=== PATIENT | female | born 1950 | race Caucasian/White ===

== ENCOUNTER 2017-07-04 11:05 | Day surgery (SDC) | payer MEDICARE, MEDICAID ==
--- NOTE | 2017-07-04 06:33 | History and Physical Report ---
DATE: 07/04/2017. CHIEF COMPLAINT AND HISTORY OF CHIEF COMPLAINT: This patient presents with a history of an intractable postlaminectomy radiculitis. This is currently being managed by an indwelling spinal cord stimulator with generator. Over the last number of months, it was noted that she was having generator or functional changes. Evaluation by computer of her generator identified battery depletion. She is here for battery replacement for the spinal cord stimulator. PAST MEDICAL HISTORY: Cardiomyopathy, sleep apnea, bladder dysfunction. PAST SURGICAL HISTORY: Pump implant, spinal cord stimulator implant. MEDICATIONS ON ADMISSION: To be provided. ALLERGIES: To be provided. SOCIAL HISTORY: Noncontributory. FAMILY HISTORY: Diabetes, coronary artery disease, cancer. REVIEW OF SYSTEMS: The patient seems appropriate and in no acute distress. The remainder of the systems review shows degenerative arthritis. PHYSICAL EXAMINATION FROM THE CHART: General: Height is 5 feet, 6 inches. Weight is 200 pounds. Vital Signs: Not available. HEENT: Within normal limits. Lungs: Clear. Abdomen: Nontender. Heart: Regular rate and rhythm. Musculoskeletal: Examination of the musculoskeletal system shows the pump in the right lower abdominal quadrant. The internal pulse generator for the stimulator is in the left lower abdominal quadrant. Both incisions appear to be intact. There is no breakdown of the incision. Sensory meyer are intact. Neurologic: Intact. IMPRESSION: 1. POSTLUMBAR LAMINECTOMY SYNDROME, ICD-10 CODE M96.1. 2. SPINAL CORD STIMULATOR INTERNAL GENERATOR NONFUNCTIONAL. PLAN: The patient is here for removal and replacement of the spinal cord stimulator generator on an outpatient basis. The potential risks, side effects , and complications have all been carefully reviewed and discussed. JOB NUMBER: [id number] cc: Primary MTDD
[~2017-07-04 11:05] MED LIST: ACETAMINOPHEN 1,000 MG/100 ML BTL IV ONE; CEFAZOLIN 2 Gram 2 GM/50 ML BAG IVPB ONE; FAMOTIDINE 20MG TABLET PO ONE; MECLIZINE 25 MG TABLET PO ONE; METOCLOPRAMIDE 10 MG TABLET PO ONE
[2017-07-04] MEDS ORDERED: PROPOFOL 10 MG/ML VIAL IV ONE (11:06)
[2017-07-04] MEDS ORDERED: BUPIVACAINE 0.75% W/EPI MPF 30ML VIAL IVP ONE (11:06)
[2017-07-04] MEDS ORDERED: LIDOCAINE 2% MDV (20MG/ML) 20ML VIAL IV ONE (11:06)
[2017-07-04] MEDS ORDERED: FENTANYL PF 100MCG/2ML VIAL IV ONE (11:06)
[2017-07-04] MEDS ORDERED: LIDOCAINE 1% W/EPI 1:200,000 MPF 30ML SQ ONE (11:06)
[2017-07-04] MEDS ORDERED: CEFAZOLIN 1G VIAL IM ONE (11:06)
[2017-07-04] MEDS ORDERED: MIDAZOLAM HCL 2MG/2ML VIAL IV ONE (11:06)
--- NOTE | 2017-07-05 04:45 | Operative Note - Ferro ---
DATE OF SURGERY: 07/04/2017. PREOPERATIVE DIAGNOSIS: 1. POSTLUMBAR LAMINECTOMY SYNDROME, ICD-10 CODE M96.1. 2. LUMBAR RADICULITIS, ICD-10 CODE M54.16 AND M54.17. 3. IMPLANTED LAMINECTOMY STIMULATOR FOR PAIN CONTROL WITH DEPLETED BATTERIES. 4. UNCOMFORTABLE GENERATOR POUCH AT THE LEFT POSTEROSUPERIOR GLUTEAL MARGIN. POSTOPERATIVE DIAGNOSIS: 1. POSTLUMBAR LAMINECTOMY SYNDROME, ICD-10 CODE M96.1. 2. LUMBAR RADICULITIS, ICD-10 CODE M54.16 AND M54.17. 3. IMPLANTED LAMINECTOMY STIMULATOR FOR PAIN CONTROL WITH DEPLETED BATTERIES. 4. UNCOMFORTABLE GENERATOR POUCH AT THE LEFT POSTEROSUPERIOR GLUTEAL MARGIN. OPERATION: 1. Incision, subcutaneous dissection, and removal of left posterosuperior generator for spinal cord stimulator. 2. Incision, subcutaneous dissection, and creation of subcutaneous pouch at left lower abdominal quadrant. 3. Tunnelling between posterior pouch and abdominal pouch. Placement of stimulator extensions times two for each lead with a total of four extensions. 4. Interface extensions to internal pulse generator. Placement of generator into pouch, securing to fascia with nonabsorbable suture. 5. Closure of incisions with Vicryl for the fascia and running subcuticular Vicryl for the skin. Dermabond closure. 6. Complex programming of internal generator in the left lower abdominal quadrant in the recovery room for 20 minutes. SURGEON: Bogdan Leggett D.O. ANESTHESIA: Local sedation. ANESTHESIA PROVIDER: Sudeep Mace CRNA. INDICATION: This patient presents with a history of an intractable lumbar radiculitis managed by a laminectomy stimulator with internal generator. Over the last number of months, the system began to malfunction. Computer assessments showed malfunction and battery depletion. She is here for replacement. Along with this the generator pouch at the left posterior gluteal margin became quite uncomfortable. A previous generator pouch at the left lower abdominal quadrant is the patient's preference, and she would like to have the generator relocated from posterior to anterior. The generator is a [employer] programmable rechargeable replacing [employer]. PROCEDURE: Intravenous line, vital sign monitoring, and intravenous sedation. Prepped and draped with sterile technique with the patient in a lateral position with the left side up. The previous generator pouch at the left posterior gluteal margin was infiltrated. An incision was made and subcutaneous dissection was conducted to the generator. This was then exteriorized and from the internal leads. At the left lower abdominal quadrant, the previous generator pouch, the skin was infiltrated. An incision was made and subcutaneous dissection was conducted to form a pouch of suitable size and depth for the generator identified as a [employer] programmable rechargeable. The two leads at the left posterior gluteal margin were then interfaced, each lead with two extensions, to enable tunnelling from posterior to anterior. A tunnelling tool was then used to carry the extensions into the abdominal pouch, and then each set of extensions was interfaced to the generator. Antibiotic irrigation and Bovie for hemostasis. The generator was placed into the pouch and the extensions were placed into the posterior pouch. The incisions were then closed with Vicryl for the fascia and running subcuticular Vicryl for the skin. A Dermabond closure was placed. The previous pouch in the left lower abdominal quadrant had been identified, but it was felt to be far too deep for the current generator. Therefore, a pouch was formed superior or above the previous pouch. The incisions were closed with Vicryl for the fascia and running subcuticular Vicryl for the skin. The generator had been sutured and secured to the deep fascia with a nonabsorbable suture. A Dermabond closure was placed over the incisions to approximate the edges of the wound. She was transported to the recovery room stable, showing no side effects from the procedure or the sedation. When fully awake and alert, complex reprogramming was performed, re-establishing stimulation. DISCHARGE INSTRUCTIONS: 1. The sites are to remain clean and dry. No showering or bathing in any way that would disrupt dressings. If this happens, she is to contact the clinic. Dermabond will allow showering within 24 hours. 2. Standard medications are to be resumed including Levaquin the antibiotic 500 mg once a day for 14 days. Should she have difficulty with the antibiotic she is to contact the clinic for a substitution. 3. All other instructions were provided and numbers to contact with problems were given. 4. The appropriate restrictions and precautions have all been provided and reviewed with the patient and her daughter. JOB NUMBER: [id number] cc: Primary Physician ADDI
== END 2017-07-04 15:55 | disposition home or self-care (01) ==
LOC: SUR 11:05
PROVIDERS: ATTEND Pain Medicine Interventional Pain Medicine
DX: T85.193A Other mechanical complication of implanted electronic neurostimulator, generator, initial encounter (principal); M96.1 Postlaminectomy syndrome, not elsewhere classified; M54.16 Radiculopathy, lumbar region; M54.17 Radiculopathy, lumbosacral region; I10 Essential (primary) hypertension; I50.9 Heart failure, unspecified; I48.91 Unspecified atrial fibrillation; Z79.01 Long term (current) use of anticoagulants; E11.9 Type 2 diabetes mellitus without complications; Z79.4 Long term (current) use of insulin
CPT/HCPCS: 63685; 00300; 95972; 93005; 93010; J3010; J0690; J3490; C1820

== ENCOUNTER 2017-11-28 09:35 | Day surgery (SDC) | payer MEDICARE, MEDICAID ==
--- NOTE | 2017-11-28 07:24 | History and Physical Report ---
DATE: 11/27/2017. CHIEF COMPLAINT AND HISTORY OF CHIEF COMPLAINT: This patient presents with a history of an implanted spinal infusion device which was placed at a different facility for a postlaminectomy radiculopathy. The pump is identified in the right lower abdominal quadrant. The incisional site appears to be intact. Infusion characteristics show a flex dose of hydromorphone at 4.5 mg a day. PAST MEDICAL HISTORY: Sleep apnea, cardiac arrhythmia, bladder dysfunction, gastrointestinal disease. SOCIAL HISTORY: Noncontributory. FAMILY HISTORY: Diabetes, hypertension, cancer. PAST SURGICAL HISTORY: Spinal surgery, pump implant. MEDICATIONS ON ADMISSION: To be provided. ALLERGIES: To be provided. REVIEW OF SYSTEMS: The patient seems appropriate and in no acute distress. The remainder of the systems review shows glasses, headaches, sleep disturbance. PHYSICAL EXAMINATION: General: Height and weight are unknown. Vital Signs: Not available. HEENT: Within normal limits. Lungs: Clear. Heart: Regular rate and rhythm. Abdomen: Nontender. Musculoskeletal: Examination of the musculoskeletal system shows the pump in the right lower abdominal quadrant. The incisional site is intact. The underlying pain pattern is in the bilateral low back with a bilateral hip and leg extension. Motor and sensory field function is difficult to fully evaluate. There does appear to be global sensory and motor deficit. Ambulation: Assistive device utilized. Neurologic: Cranial nerves are intact. IMPRESSION: 1. POSTLUMBAR LAMINECTOMY SYNDROME, ICD-10 CODE M96.1. 2. LUMBAR RADICULOPATHY, ICD-10 CODE M54.16 AND M54.17. 3. SPINAL INFUSION SYSTEM WITH HYDROMORPHONE, BATTERY DEPLETION. PLAN: The patient is here for replacement of the pump battery on an outpatient basis. The potential risks, side effects, and complications have been reviewed and discussed. The patient understands and has consented. JOB NUMBER: [id number] cc: Primary Care Physician ADDI
[~2017-11-28 09:35] MED LIST changes: +BACLOFEN IV ONE; +HYDROMORPHONE HCL IV ONE; +HYDROMORPHONE PF 2MG/ML AMP 0.004 MG in 0.9 % SODIUM CHLORIDE 10ML VIA 0.998 ML IV ONE; +SODIUM CHLORIDE 0.9% IV ONE
[2017-11-28] MEDS ORDERED: *PACU ONLY* KETAMINE HCL 10 MG/ML (20ML) VIAL IV ONE (09:36)
[2017-11-28] MEDS ORDERED: MIDAZOLAM HCL 2MG/2ML VIAL IV ONE (09:36)
[2017-11-28] MEDS ORDERED: FENTANYL PF 100MCG/2ML VIAL IV ONE (09:36)
[2017-11-28] MEDS ORDERED: LIDOCAINE 2% MDV (20MG/ML) 20ML VIAL IV ONE (09:36)
[2017-11-28] MEDS ORDERED: LIDOCAINE 1% W/EPI 1:200,000 MPF 30ML SQ ONE (09:36)
[2017-11-28] MEDS ORDERED: CEFAZOLIN 1G VIAL IM ONE (09:36)
[2017-11-28] MEDS ORDERED: BUPIVACAINE 0.5% W/EPI MPF 30 ML VIAL IVP ONE (09:36)
[2017-11-28] MEDS ORDERED: PROPOFOL 10 MG/ML VIAL IV ONE (09:36)
--- NOTE | 2017-11-28 16:24 | Operative Note - Ferro ---
DATE OF SURGERY: 11/28/17 PREOPERATIVE DIAGNOSES: 1. POST LUMBAR LAMINECTOMY SYNDROME, ICD-10 CODE = M96.1. 2. LUMBAR RADICULOPATHY, ICD-10 CODE = M54.16 AND M54.17. 3. IMPLANTED SPINAL OPIOID INFUSION HYDROMORPHONE/BACLOFEN DEPLETED BATTERY. OPERATION: FLUOROSCOPICALLY-GUIDED INCISION AND SUBCUTANEOUS DISSECTION AND REMOVAL AND REPLACEMENT OF PROGRAMMABLE PUMP [employer] 40 ML. SURGEON: AUSTIN BECKER D.O. ANESTHESIA: LOCAL SEDATION. ANESTHESIA PROVIDER: ANNA MARIE GARCIA CRNA INDICATION: This patient with a history of spinal infusion device with Baclofen and Hydromorphone has battery depletion identified during the last number of refills. She is here for battery pump replacement. PROCEDURE: Intravenous line, vital sign monitoring, IV sedation, prepped and draped with sterile technique. Patient supine. The pump in the lower right abdominal quadrant noted. Incision infiltrated with local, incision made, and subcutaneous dissection was conducted to the pouch. The pouch was opened and the pump exteriorized and from the internal catheter. A new pump prefilled Hydromorphone and Baclofen at 6 and 20 mg per mL was then placed onto the field and interfaced with the indwelling catheter. Antibiotic irrigation and Bovie for hemostasis. The pump was then secured to the posterior fascia of the pouch with two nonabsorbable sutures and pump eyelets. The internal catheter had been resected and revised to removing from scar tissue, which had matted and coiled the catheter. With the pump into the pouch and secured, no diagnostics performed. The incision was then closed Vicryl for fascia, running subcuticular Vicryl for skin. Dermabond closure. The pump was then programmed back to the original parameters, daily dose 4.9 Hydromorphone, 17.369 Baclofen. All alarm values were reset. She was transported stable to the Recovery Room showing no side-effects from the procedure or the sedation. When fully awake and alert, discharge instructions were provided. DISCHARGE INSTRUCTIONS: 1. Sites to remain clean and dry although the Dermabond will allow showering. She should not sit in water. 2. Standard medications resumed including the antibiotic, Keflex, 500 mg 1 at four times a day for 10 days. 3. The office will contact the patient at home to schedule the appointment for the visit to evaluate the incisional site in 7-10 days. Through this period of time, her activity levels should stay controlled and low. She will be cleared for further activities once the incisional sites have been checked in the office. All other instructions provided. Precautions opioid infusion, respiratory depression, nausea, vomiting, constipation, urinary retention, lightheadedness or rash have been provided, numbers to contact, problems given. She will be contacted by the office for the postoperative visit. cc: Dr. Jasmyn Chavez JOB NUMBER: [id number] MTDD
== END 2017-11-28 14:25 | disposition home or self-care (01) ==
LOC: SUR 09:35
PROVIDERS: ATTEND Pain Medicine Interventional Pain Medicine
DX: M96.1 Postlaminectomy syndrome, not elsewhere classified (principal); M54.16 Radiculopathy, lumbar region; M54.17 Radiculopathy, lumbosacral region; E11.9 Type 2 diabetes mellitus without complications; Z79.4 Long term (current) use of insulin; I10 Essential (primary) hypertension; I48.91 Unspecified atrial fibrillation; Z79.01 Long term (current) use of anticoagulants
CPT/HCPCS: 62362; 00400; 62368; 36416; 82948; 85002; J3010; J0690; J0475; J1170

== ENCOUNTER 2019-08-19 07:36 | Inpatient (IN) | payer MEDICARE, MEDICAID ==
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
[2019-08-19 08:11] LABS: ABSOLUTE NEUTROPHIL COUNT 5.55; BASO % 0.4 % (0-6); EOS % 0.7 % (0-6); HEMATOCRIT 40.4 % (35.0-47.0); HEMOGLOBIN 12.7 gm/dl (11.6-16.0); LYMPH % 14.3 % (16-45); MEAN CELL VOLUME 88.4 fl (81-97); MEAN CORPUSCULAR HEMOGLOBIN 27.8 pg (27-33); MEAN CORPUSCULAR HGB CONC 31.4 g/dl (32-36); MEAN PLATELET VOLUME 10.4 fl (7.4-10.4); MONO % 6.6 % (0-9); PLATELET COUNT 199 K/uL (130-400); RED BLOOD COUNT 4.57 M/uL (3.80-5.40); RED CELL DISTRIBUTION WIDTH 14.8 % (11.5-14.5); WHITE BLOOD COUNT W/O DIFF 7.1 K/uL (4.2-12.2)
[2019-08-19 08:23] LABS: BLOOD UREA NITROGEN 16 mg/dL (8-23); CREATININE 0.8 mg/dL (0.5-0.9); EST GLOMERULAR FILTRATION RATE > 60 mL/min
[2019-08-19 08:24] LABS: TOTAL PROTEIN 7.3 g/dL (6.6-8.7)
[2019-08-19 08:26] LABS: GLUCOSE,RANDOM 144 mg/dL (74-109)
[2019-08-19 08:28] LABS: ALB/GLOB RATIO 1.4 (1.1-1.8); ALBUMIN 4.3 g/dL (4.0-5.0); ALT/SGPT 13 U/L (<33); AST/SGOT 18 U/L (10.0-35.0)
[2019-08-19 08:29] LABS: ALKALINE PHOSPHATASE 104 U/L (35-104); CREATINE PHOSPHOKINASE 173 U/L (26-192)
[2019-08-19 08:31] LABS: CKMB 8.9 ng/mL (<3.77)
[2019-08-19 08:33] LABS: CKMB RELATIVE INDEX 5.14 % (0-4)
[2019-08-19] MEDS ORDERED: HYDROMORPHONE HCL 2 MG/ML VIAL IVP ONE (09:22)
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
[2019-08-19] MEDS ORDERED: CEFTRIAXONE 1GM/50ML BAG 1 GM/50 ML BAG IVPB ONE (09:53)
[2019-08-19] MEDS ORDERED: ASPIRIN 81 MG CHEWABLE TABLET PO ONE (10:53)
[2019-08-19] MEDS ORDERED: ONDANSETRON 4 MG ODT TABLET PO PRN (11:43)
[2019-08-19] MEDS ORDERED: ACETAMINOPHEN 500 MG TABLET PO PRN (11:43)
[2019-08-19] MEDS ORDERED: HYDROMORPHONE HCL 1 MG IJ SCH (11:43)
[2019-08-19] MEDS ORDERED: NITROGLYCERIN 0.4MG SL TABLET #25 BTL SL PRN (11:43)
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
[2019-08-19] MEDS: LISINOPRIL 20 MG TABLET PO SCH (12:42)
[2019-08-19] MEDS: AZITHROMYCIN 500 MG TABLET PO SCH (12:42)
[2019-08-19] MEDS ORDERED: ACETAMINOPHEN W/ CODEINE 300MG/30MG TABLET PO PRN (12:48)
[2019-08-19] MEDS ORDERED: IPRATROPIUM/ALBUTEROL (0.5MG/3MG) NEB INH PRN (12:49)
[2019-08-19] MEDS: ACETAMINOPHEN W/ CODEINE 300MG/30MG TABLET PO PRN ×2 (13:05→20:57)
[2019-08-19] MEDS ORDERED: METHYLPHENIDATE HCL 10 MG PO SCH (16:00)
[2019-08-19 16:34] LABS: CKMB 14.8 ng/mL (<3.77)
[2019-08-19 16:49] LABS: CKMB RELATIVE INDEX 4.6 % (0-4)
[2019-08-19] MEDS ORDERED: LEVEMIR FLEXTOUCH 100 UNIT/ML INSULIN PEN SQ SCH (22:00)
[2019-08-19] MEDS ORDERED: BECLOMETHASONE DIPROPIONATE IH SCH (22:00)
[2019-08-19] MEDS ORDERED: FUROSEMIDE 40 MG TABLET PO SCH (22:00)
[2019-08-19] MEDS ORDERED: KETOROLAC TROMETHAMINE 10 MG PO SCH (22:00)
[2019-08-19] MEDS: CEFTRIAXONE 1GM/50ML BAG 1 GM/50 ML BAG IVPB SCH (22:33)
[2019-08-20 00:53] LABS: CKMB 8.6 ng/mL (<3.77)
[2019-08-20 01:24] LABS: CKMB RELATIVE INDEX 3.6 % (0-4)
[2019-08-20] MEDS: ACETAMINOPHEN W/ CODEINE 300MG/30MG TABLET PO PRN ×2 (03:19→12:54)
[2019-08-20 06:30] LABS: ABSOLUTE NEUTROPHIL COUNT 3.51; BASO % 0.4 % (0-6); EOS % 2.2 % (0-6); GRAN % 63.8 % (47-80); HEMATOCRIT 35.6 % (35.0-47.0); HEMOGLOBIN 10.8 gm/dl (11.6-16.0); LYMPH % 24.7 % (16-45); MEAN CELL VOLUME 90.8 fl (81-97); MEAN CORPUSCULAR HGB CONC 30.3 g/dl (32-36); MEAN PLATELET VOLUME 10.5 fl (7.4-10.4); MONO % 8.9 % (0-9); PLATELET COUNT 185 K/uL (130-400); RED BLOOD COUNT 3.92 M/uL (3.80-5.40); RED CELL DISTRIBUTION WIDTH 14.8 % (11.5-14.5); WHITE BLOOD COUNT W/O DIFF 5.5 K/uL (4.2-12.2)
[2019-08-20 06:33] LABS: MEAN CORPUSCULAR HEMOGLOBIN 27.5 pg (27-33)
[2019-08-20 06:45] LABS: BLOOD UREA NITROGEN 16 mg/dL (8-23); CREATININE 0.7 mg/dL (0.5-0.9); EST GLOMERULAR FILTRATION RATE > 60 mL/min; GLUCOSE,RANDOM 131 mg/dL (74-109)
[2019-08-20] MEDS: CEFTRIAXONE 1GM/50ML BAG 1 GM/50 ML BAG IVPB SCH (09:37)
[2019-08-20] MEDS: AZITHROMYCIN 500 MG TABLET PO SCH (09:38)
[2019-08-20] MEDS: LISINOPRIL 20 MG TABLET PO SCH (09:38)
[2019-08-20] MEDS ORDERED: SENNOSIDES 8.6 MG PO SCH (10:00)
[2019-08-20] MEDS ORDERED: ASPIRIN 325 MG TAB ENTERIC-COATED PO SCH (10:00)
[2019-08-20] MEDS ORDERED: CARVEDILOL 3.125 MG TABLET PO SCH (10:00)
[2019-08-20] MEDS ORDERED: POTASSIUM CHLORIDE 20 MEQ PO SCH (10:00)
[2019-08-20] MEDS ORDERED: POLYETHYLENE GLY 17 GM PACKET PO SCH (10:00)
[2019-08-20] MEDS ORDERED: ENOXAPARIN 40 MG/0.4 ML SYR SQ SCH (10:00)
[2019-08-20] MEDS ORDERED: DULOXETINE HCL 30 MG CAPSULE.DR PO SCH (10:00)
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
== END 2019-08-20 14:20 | disposition home or self-care (01) | DRG 313 ==
LOC: ER 07:36 → MEDSURG 11:04 → OBSVTOIN 11:04
PROVIDERS: ADMIT Internal Medicine; ATTEND Internal Medicine
DX: R07.9 Chest pain, unspecified (principal); J18.9 Pneumonia, unspecified organism; V49.9XXA Car occupant (driver) (passenger) injured in unspecified traffic accident, initial encounter; I50.9 Heart failure, unspecified; I44.7 Left bundle-branch block, unspecified; E11.9 Type 2 diabetes mellitus without complications; Z79.4 Long term (current) use of insulin; M54.9 Dorsalgia, unspecified; G89.29 Other chronic pain; R60.9 Edema, unspecified; I10 Essential (primary) hypertension; G62.9 Polyneuropathy, unspecified; N31.9 Neuromuscular dysfunction of bladder, unspecified; K59.09 Other constipation
CPT/HCPCS: 82550 ×2; 85025; 82553; 80053; 84484; 72125; 71250; 93005; 93010; J1170; J0696; 36416; 80048; 82948; 94760; 96365; 96366; 96375; 99223; 99239; 99285; J1650

== ENCOUNTER 2019-09-24 07:34 | Day surgery (SDC) | payer MEDICARE, MEDICAID ==
--- NOTE | 2019-09-24 06:31 | History and Physical - Ferro ---
CHIEF COMPLAINT/HISTORY OF CHIEF COMPLAINT: This patient presents with a history of a post lumbar laminectomy radiculopathy. During diagnostic stages and before spinal surgery a myelogram performed with Pantopaque resulted in severe arachnoiditis. An intraspinal infusion device has been in place which has not adequately been controlling pain. A spinal cord stimulator trial on 08/04/19 resulted in 75% relief. Due to the failure of all of her other therapies and the success of the trial, she is here for permanent implantation. PAST MEDICAL HISTORY: Sleep apnea, cardia arrhythmia, bladder dysfunction, and gastrointestinal disease. PAST SURGICAL HISTORY: Lumbar spinal surgery and pump implant. MEDICATIONS ON ADMISSION: List to be provided. ALLERGIES: BETADINE, IVP DYE AND FELDENE. FAMILY/PSYCHOSOCIAL HISTORY: Social history - Noncontributory. Family history - Diabetes, hypertension, and cancer. SYSTEMS REVIEW: The patient is appropriate in no acute distress. The remainder of the systems review is positive for glasses, headaches, and sleep disturbance. PHYSICAL EXAMINATION: Vital signs are not available. HEENT: Within normal limits. LUNGS: Clear. HEART: Rapid and regular. ABDOMEN: Nontender. MUSCULOSKELETAL: Examination of the musculoskeletal system shows diffuse tenderness throughout the lumbar spine adjacent to a laminectomy scar. Range of motion produces pain throughout the low back and extending into the lower extremities. Ambulation is antalgic. There are motor and sensory deficits that are symmetric and bilateral, but the primary pain pattern appears to be L5-S1. Ambulation - No assistive device utilized. NEUROLOGIC: Cranial nerves are intact. IMPRESSION: POST LUMBAR LAMINECTOMY SYNDROME, ICD-10 M96.1 WITH RADICULOPATHY, ICD-10 CODE M54.16 AND M54.17. PLAN: The patient is here for implantation of a permanent spinal cord stimulator after successful trial and failure of other therapies. The risks, side effects and complications have been reviewed and discussed. The procedure will be considered outpatient, but an overnight stay will be evaluated. JOB NUMBER: [id number] [facility]
[~2019-09-24 07:34] MED LIST changes: -ACETAMINOPHEN 1,000 MG/100 ML BTL IV ONE; +ACETAMINOPHEN 1,000 MG/100 ML BTL IVPB ONE; -BACLOFEN IV ONE; -HYDROMORPHONE HCL IV ONE; -HYDROMORPHONE PF 2MG/ML AMP 0.004 MG in 0.9 % SODIUM CHLORIDE 10ML VIA 0.998 ML IV ONE; -SODIUM CHLORIDE 0.9% IV ONE
[2019-09-24] MEDS ORDERED: LIDOCAINE 2% MDV (20MG/ML) 20ML VIAL IV ONE (07:35)
[2019-09-24] MEDS ORDERED: FENTANYL PF 100MCG/2ML VIAL IV ONE (07:35)
[2019-09-24] MEDS ORDERED: HYDROMORPHONE HCL 2 MG/ML VIAL IV ONE (07:35)
[2019-09-24] MEDS ORDERED: PROPOFOL 10 MG/ML VIAL IV ONE (07:35)
[2019-09-24] MEDS ORDERED: MIDAZOLAM HCL 2MG/2ML VIAL IV ONE (07:35)
[2019-09-24] MEDS ORDERED: RINGERS SOLUTION,LACTATED 1,000 ML IV ONE (08:45)
[2019-09-24] MEDS ORDERED: LIDOCAINE 1% W/EPI 1:100,000 MDV 20 ML VIAL SQ ONE ×2 (10:57)
[2019-09-24] MEDS ORDERED: BUPIVACAINE 0.5% W/EPI MPF 30 ML VIAL SQ ONE ×2 (10:57)
[2019-09-24] MEDS ORDERED: ACETAMINOPHEN 325 MG TAB PO PRN (12:45)
[2019-09-24] MEDS ORDERED: DIPHENHYDRAMINE HCL 50 MG/ML VIAL IVP PRN ×2 (12:45)
[2019-09-24] MEDS ORDERED: METOCLOPRAMIDE 10 MG TABLET PO PRN (12:45)
[2019-09-24] MEDS ORDERED: AL HYDROX/MAG HYDROX 30ML UD PO PRN (12:45)
[2019-09-24] MEDS ORDERED: TEMAZEPAM 15 MG CAPSULE PO PRN (12:45)
[2019-09-24] MEDS ORDERED: HYDROMORPHONE HCL 2 MG/ML VIAL IM PRN ×2 (12:45)
[2019-09-24] MEDS ORDERED: SENNOSIDES/DOCUSATE SODIUM UD CAPSULE PO PRN ×2 (12:45)
[2019-09-24] MEDS ORDERED: METOCLOPRAMIDE HCL 10 MG/2 ML VIAL IVP PRN (12:45)
[2019-09-24] MEDS ORDERED: HYDROCODONE/APAP 7.5/325MG TABLET PO PRN ×2 (12:45)
[2019-09-24] MEDS ORDERED: OXYCODONE/APAP 10MG-325MG TABLET PO PRN ×2 (12:45)
[2019-09-24] MEDS ORDERED: DIPHENHYDRAMINE HCL 25 MG CAPSULE PO PRN ×2 (12:45)
[2019-09-24] MEDS ORDERED: FUROSEMIDE 40 MG TABLET PO PRN (12:47)
[2019-09-24] MEDS ORDERED: POTASSIUM CHLORIDE 20 MEQ TABLET PO PRN (12:47)
--- NOTE | 2019-09-24 12:50 | Operative Note - Ferro ---
DATE OF SURGERY: 09/24/2019 PREOPERATIVE DIAGNOSIS: POST LUMBAR LAMINECTOMY SYNDROME, ICD-10 CODE M96.1 WITH RADICULOPATHY, ICD-10 CODE M45.16 AND M54.17. OPERATION: 1. FLUOROSCOPICALLY GUIDED LEFT EPIDURAL ACCESS T12-L1, PLACEMENT OF SPINAL CORD STIMULATOR LEAD 1, [employer] 16, 6-ELECTRODES POSITIONED LEFT T10. 2. FLUOROSCOPICALLY GUIDED EPIDURAL ACCESS LEFT T11-T12, PLACEMENT OF SPINAL CORD STIMULATOR LEAD 2, [employer] 16, 6-ELECTRODES POSITIONED RIGHT T10. 3. COMPLEX PROGRAMMING LEAD 1 OVER TWENTY MINUTES FOLLOWED BY COMPLEX PROGRAMMING OF LEAD 2 OVER TWENTY MINUTES. 4. INCISION, SUBCUTANEOUS DISSECTION, ANCHORING OF LEAD 1 AND LEAD 2 TO THE SUPRASPINOUS FASCIA WITH [employer] LOCKING ANCHOR AND NONABSORBABLE SUTURE. 5. INCISION, SUBCUTANEOUS DISSECTION, AND CREATION OF SUBCUTANEOUS POUCH AT LEFT POSTERIOR GLUTEAL MARGIN FOR PLACEMENT OF GENERATOR IDENTIFIED [employer] PROGRAMMABLE RECHARGEABLE WAVEWRITER. 6. TUNNELLING BETWEEN LEAD POUCH EXTENDING INTO GENERATOR POUCH, INTERFACED EACH LEAD WITH GENERATOR. 7. PLACEMENT OF GENERATOR POUCH AND PLACEMENT OF BOTH LEADS INTO POUCH, CLOSURE OF BOTH INCISIONS USING STRATAFIX SUTURE 2-0 VICRYL AND 3-0 SKIN. DERMABOND CLOSURE. 8. COMPLEX RECOVERY ROOM PROGRAMMING INTERNAL GENERATOR HOME USE TWO STIMULATORS TWENTY MINUTES. SURGEON: Bogdan Leggett D.O. ANESTHESIA: Local sedation. ANESTHESIA PROVIDER: Sudeep Mace CRNA INDICATION: This patient presents with history of post lumbar laminectomy radiculopathy. Due to the failure of all therapies, a stimulator trial was conducted with 75-85% pain control. Due to the failure of therapy and the success of the trial, the patient presents for implantation of a permanent system. PROCEDURE: Intravenous line, vital sign monitoring, IV sedation, prepped and draped, sterile technique. Under imaging the epidural interspace left of midline at T12-L1 and T11-T12, were marked and infiltrated, two separate curved access Epimed needles with loss of resistance into the space, atraumatic. No blood. No CSF. At T11-T12, spinal cord stimulator Lead 1 [employer] In[employer]ion 16, 6-electrodes positioned left T10. The access at T12-L1, spinal cord stimulator Lead 2 [employer] In[employer] 16, 6-electrodes positioned right at T10. Complex programming Lead 1 over twenty minutes followed by complex programming Lead 2 over twenty minutes resulting in a complete pattern of stimulation across the back into legs. The patient is indicating that we hit all of the areas of the pain. She was given the option to implant, continue to program and remove and she opted to implant. Questions were repeated with the same response. The skin above and below the needles was infiltrated, incision made, and subcutaneous dissection was conducted to the supraspinous fascia. The needles were removed and each lead was anchored to the supraspinous fascia with a Waygo locking anchor and nonabsorbable suture. At the left posterior gluteal margin at the site picked by the patient for the generator, the skin was infiltrated, incision made, and subcutaneous dissection was conducted to form a pouch of suitable size and depth for the generator. Antibiotic irrigation, Bovie for hemostasis at both sites. A tunnelling tool was used to carry the leads into the pouch, each lead interfaced with the generator. The generator was placed into the pouch, the leads were placed into their own pouch, and then both incisions were closed using Stratafix suture 2-0 fascia and 3-0 skin. Dermabond closure then to approximate the edges of both wounds. She was transported to the Recovery Room stable. There were no side effects from the procedure or the sedation. When fully awake and alert complex programming of the internal generator in the Recovery Room performed for twenty minutes reestablishing stimulation. Because of distance from home she will be kept overnight for observation and discharged in the morning. DISCHARGE INSTRUCTIONS: 1. The sites are to remain clean and dry although the Dermabond will allow showering she should not sit in water. 2. Standard medications will be resumed including the antibiotic Levaquin 500 mg once a day for fourteen days. 3. Office to contact the patient in 12-24 hours to set up a time in 7-10 days to evaluate the sites. Between now and that time she is to keep her activities low, limit bend, lift, push, pull, and keep the dressing intact. Should the dressing curl she can trim edges, but do not remove. All other instructions are provided . The numbers to contact if problems given. She will be discharged in the morning. JOB NUMBER: [id number] MTDD
[2019-09-24] MEDS ORDERED: LISINOPRIL 20 MG TABLET PO SCH (13:00)
[2019-09-24] MEDS ORDERED: CEFAZOLIN 2 Gram 2 GM/50 ML BAG IVPB SCH (18:15)
--- NOTE | 2019-09-24 20:06 | RADIOLOGY REPORT ---
EXAMINATION: Thoracolumbar Spine Single View EXAM DATE: 09/24/2019 11:42 AM TECHNIQUE: Frontal view INDICATION: SCS IMPLANT, LEADS GENERATOR COMPARISON: None ENCOUNTER: Initial FINDINGS: Left-sided nerve stimulator with leads projecting over the thoracic spine to the T9 level. There are additional leads projected over the left abdomen and coursing over the thoracic spine to the T6-7 lev el. A few beads are also partially visualized in the right abdomen. IMPRESSION: Multiple nerve stimulator leads, as above. Dictated by: Mike Judge MD on 09/24/2019 8:03 PM. .
[2019-09-24] MEDS ORDERED: LEVEMIR FLEXTOUCH 100 UNIT/ML INSULIN PEN SQ SCH (22:00)
[2019-09-24] MEDS ORDERED: 0.9 % SODIUM CHLORIDE 10ML SYR IVP SCH (22:00)
[2019-09-25] MEDS ORDERED: CARVEDILOL 3.125 MG TABLET PO SCH (10:00)
== END 2019-09-24 18:14 | disposition home or self-care (01) ==
LOC: SUR 07:34 → MEDSURG 12:24 → SUR 18:14
PROVIDERS: ATTEND Pain Medicine Interventional Pain Medicine
DX: M96.1 Postlaminectomy syndrome, not elsewhere classified (principal); M54.17 Radiculopathy, lumbosacral region; I10 Essential (primary) hypertension; E11.9 Type 2 diabetes mellitus without complications; Z79.4 Long term (current) use of insulin; I50.9 Heart failure, unspecified; I48.91 Unspecified atrial fibrillation
CPT/HCPCS: 63650; 63685; 01936; 95972; 36416; 82948; 72020; C1883; C1820; J3010; J1170; J0690; J7120